=== PATIENT | male | born 1960 | race Caucasian/White ===

== ENCOUNTER 2022-02-11 10:49 | Outpatient (CLI) | payer OTHER, SELFPAY ==
[2022-02-11 18:33] LABS: Cholesterol* 147 mg/dL (90-199); HDL Cholesterol* 41 mg/dL (>=40); LDL Cholesterol Calculated 72 mg/dL (<100); Triglycerides* 170 mg/dL (40-149)
== END 2022-02-11 10:50 | disposition home or self-care (01) ==
LOC: LONREF 10:50
PROVIDERS: PCP Family Medicine; Visit Provider Family Medicine
DX: E78.5 Hyperlipidemia, unspecified (principal)
CPT/HCPCS: 80061

== ENCOUNTER 2023-02-08 11:17 | Outpatient (CLI) | payer OTHER, SELFPAY | END 2023-02-08 11:18 | disposition home or self-care (01) | PROVIDERS: PCP Family Medicine; Visit Provider Family Medicine | DX: E13.9 Other specified diabetes mellitus without complications (principal); I10 Essential (primary) hypertension; E78.5 Hyperlipidemia, unspecified; C85.10 Unspecified B-cell lymphoma, unspecified site; Z12.5 Encounter for screening for malignant neoplasm of prostate | CPT/HCPCS: 80048; 80061; 84153 ==

== ENCOUNTER 2024-03-17 11:10 | Outpatient (CLI) | payer OTHER, SELFPAY | END 2024-03-17 11:11 | disposition home or self-care (01) | PROVIDERS: PCP Family Medicine; Visit Provider Family Medicine | DX: E13.9 Other specified diabetes mellitus without complications (principal); I10 Essential (primary) hypertension; E78.5 Hyperlipidemia, unspecified; C85.10 Unspecified B-cell lymphoma, unspecified site; F32.A Depression, unspecified | CPT/HCPCS: 80048; 80061 ==

== ENCOUNTER 2024-09-19 11:17 | Outpatient (CLI) | payer OTHER, SELFPAY | END 2024-09-19 11:18 | disposition home or self-care (01) | LOC: LKVREF 11:18 | PROVIDERS: PCP Family Medicine; Visit Provider Family Medicine | DX: Z12.5 Encounter for screening for malignant neoplasm of prostate (principal) | CPT/HCPCS: G0103 ==

== ENCOUNTER 2025-04-13 11:38 | Outpatient (CLI) | payer OTHER, SELFPAY | END 2025-04-13 11:39 | disposition home or self-care (01) | PROVIDERS: PCP Family Medicine; Visit Provider Family Medicine | DX: I10 Essential (primary) hypertension (principal); E78.2 Mixed hyperlipidemia | CPT/HCPCS: 80048; 80061 ==